=== PATIENT | male | born 1965 | race Caucasian/White ===

== ENCOUNTER → 2016-11-05 | Outpatient (CLI) | payer BC ==
--- NOTE | 2016-11-05 21:49 | CONS ---
DATE OF CONSULTATION: REASON FOR CONSULTATION: Sleep apnea. This is a 51-year-old male patient who is quite concerned about sleep apnea. Apparently he snores loudly and stops breathing at night and he is having some degree of excessive tiredness and sleepiness during the day. He does not have many medical problems or comorbidities other than hypertension. No grinding of the teeth. No restlessness in the lower extremities. No anxiety or depression. Duncan score is 19. No sleep paralysis. No hallucinations. No cataplexy. No falling asleep during day-to-day activities or driving a car. PAST MEDICAL HISTORY: Hypertension. Surgical history includes surgery for diverticular disease and orthopedic surgery on his right leg. DRUG ALLERGIES: NOT KNOWN. Outpatient medication includes Caduet. SOCIAL HISTORY: Nonsmoker. No history of alcohol. No history of IV drugs. FAMILY HISTORY: Negative for sleep apnea. REVIEW OF SYSTEMS: Twelve-point review of systems was done. The positive findings were all mentioned above in the history of present illness. BP is 120/81, pulse 84, respiration 16, temperature 97.1, saturation 96% on room air. Weight is 190. Height is 5 feet 8 inches. Neck size is 15-1/4. GENERAL APPEARANCE: Calm, comfortable. HEENT: Short neck. Crowding of posterior pharynx. There is no goiter or neck masses. Slight overbite. LUNGS: Clear to auscultation. HEART: Sounds are regular rate and rhythm. Normal S1, S2. ABDOMEN: Soft, nontender. No organomegaly. EXTREMITIES: No edema. No cyanosis or clubbing. IMPRESSION: 1. Snoring along with chronic hypersomnia; rule out obstructive sleep apnea. 2. Hypertension. PLAN: Proceed with a screening polysomnogram and treat accordingly.
== END | disposition home or self-care (01) ==
LOC: SLEEP 14:15
PROVIDERS: ATTEND Internal Medicine Critical Care Medicine
DX: G47.33 Obstructive sleep apnea (adult) (pediatric) (principal); G47.13 Recurrent hypersomnia; I10 Essential (primary) hypertension; Z79.899 Other long term (current) drug therapy
CPT/HCPCS: 99211

== ENCOUNTER → 2017-02-05 | Outpatient (CLI) | payer BC ==
--- NOTE | 2017-02-05 11:31 | XR ---
EXAM TYPE: LUMBAR SPINE X RAY SERIES COMPARISON: NONE HISTORY: Low back pain TECHNIQUE: 3 views are submitted. FINDINGS: Alignment is anatomic. The pedicles are intact. The transverse processes are intact. There is no s pondylolysis or spondylolisthesis. Hypertrophic changes at L2-3 and L3-L4 noted. There is a anterior superior endplate compression deformity of T12 of indeterminate age. Mild degenerative disc disease L2-3 L3-L4. IMPRESSION: 1. Anterior superior endplate fracture T12 of indeterminate age correlate with MRI. 2. Multilevel mild degenerative disc disease.
== END ==
LOC: RADXRMAIN 11:14
PROVIDERS: ATTEND Physician Assistant
DX: S22.089A Unspecified fracture of T11-T12 vertebra, initial encounter for closed fracture (principal); M51.36 Other intervertebral disc degeneration, lumbar region
CPT/HCPCS: 72100

== ENCOUNTER → 2017-03-19 | Outpatient (CLI) | payer BC ==
--- NOTE | 2017-03-19 09:22 | US ---
EXAMINATION TYPE: US abdomen complete DATE OF EXAM: 03/19/2017 COMPARISON: NONE CLINICAL HISTORY: R19.00 Abdominal Mass. Hx of diverticulitis and diverticulosis. Palpable on right anterior lateral abdomen. EXAM MEASUREMENTS: Liver Length: 14.2 cm Gallbladder Wall: 0.2 cm CHD: 0.3 cm Spleen: 11.9 cm Right Kidney: 10.1 x 5.6 x 5.1 cm Left Kidney: 10.4 x 5.6 x 5.1 cm At the palpable abnormality there is an isoechoic area with the adjacent subcutaneous fat. This is es timated to measure 4.0 x 1.1 cm and may be a lipoma. Pancreas: head and tail not well seen due to overlying bowel gas Liver: wnl Gallbladder: wnl Evidence for sonographic Andrew's sign: neg CHD: wnl Spleen: wnl Right Kidney: wnl Left Kidney: wnl Upper IVC: seen Abd Aorta: seen Area of visual palpable area scanned. Prominent superficial lesion seen, nonvascular = 4.0 x 2.6 x 1 .1 cm. Contralateral image taken. IMPRESSION: 1. Visualized abdomen ultrasound is unremarkable. 2. At the palpable area fat type echogenicity may be present. Consider lipoma. CT or MRI could be per formed over this region for confirmation.
== END | disposition home or self-care (01) ==
LOC: RADUSWWP 08:04
PROVIDERS: ATTEND Family Medicine
DX: R19.00 Intra-abdominal and pelvic swelling, mass and lump, unspecified site (principal)
CPT/HCPCS: 76700

== ENCOUNTER → 2017-06-24 | Outpatient (CLI) | payer BC ==
--- NOTE | 2017-06-24 16:22 | PN ---
PROGRESS NOTE 51-year-old male patient diagnosed having LEXIE with an AHI of 25, currently on CPAP and the patient is coming in for follow up and a compliancy check. Feeling better. His Rosendale score was 19 because of reflecting his excessive hypersomnia and is improving while on CPAP therapy. His sleep quality is improved. He is waking up much more energetic and refreshed and alert. He is benefitting from the treatment. His compliance data that shows that the patient has been having difficulty keeping the mask and he has a AirFit P10 nasal pillows. He has been using his CPAP almost every night 27 out of 30 days. His CPAP use for more than 4 hours is 50% of the time. His average CPAP is around 3.8 hours. Leak factor is at 30 L and his AHI while on treatment is down to 2.9. As such, the patient will need mask adjustment. He is benefitting from the treatment. PHYSICAL EXAMINATION: BP is 129/76, pulse 73, respirations 18, weight is 196, temperature 98.0. Saturation 98% on room air. GENERAL APPEARANCE: Calm, comfortable. HEENT: Negative for JVD. No goiter or neck mass. Mallampati class 4. Lungs clear to auscultation. Heart sounds regular rhythm. Normal S1, S2. Abdomen is soft, nontender. No organomegaly. EXTREMITIES: No edema. No cyanosis or clubbing. IMPRESSION: 1. Symptomatic obstructive sleep apnea moderate to severe with an AHI of 25, currently on CPAP pressure of 11 cm of water. Having difficulty in keeping a tight seal with AirFit nasal pillow. 2. Hypersomnia improving. 3. Sleep fragmentation improving. 4. Nocturnal oxygen desaturation. Improving. PLAN: 1. Trial this patient on a Jacobson FX nasal mask. Another option will be a Dreamware nasal pillow. 2. Keep same CPAP pressure. 3. See me back in 30 days for another compliancy check. MMODL / IJN: [id number] /
== END ==
LOC: SLEEP 15:05
PROVIDERS: ATTEND Internal Medicine Critical Care Medicine
DX: G47.33 Obstructive sleep apnea (adult) (pediatric) (principal); G47.10 Hypersomnia, unspecified

== ENCOUNTER → 2017-07-22 | Outpatient (CLI) | payer BC ==
--- NOTE | 2017-07-22 18:04 | PN ---
PROGRESS NOTE This 51-year-old male patient had obstructive sleep apnea with an AHI of 25 and currently he is on CPAP therapy. Unfortunately we are having issues with the patient's compliancy. During his last evaluation I noted the patient has been doing well. However I want to improve his compliance further by giving him a dream wear nose pillow and switched him from a Jacobson FX nose mask. On today's evaluation the treatment compliance has gotten worse as the patient has not been able to achieve more than 4 hours of CPAP use with dream wear mask. He puts the mask on every night however it seems that the mask itself is coming off and he is looking for an alternative mask that has a better grasp on his nose and a stronger head gear to the point where he cannot pull it out. He feels that he does better when he is on the CPAP and he was benefitting from the treatment. However now that his compliance has gotten worse his symptoms of sleep apnea are back and the patient is feeling somnolent and sleepy. PHYSICAL EXAMINATION: His current vital signs are as follows: Blood pressure is 119/76, pulse 88, respirations 16, height is 5 feet 8 inches, weight is 192, BMI 29. General appearance calm comfortable, not in acute distress. Head is atraumatic, normocephalic. Neck is supple. There is no JVD no goiter or neck masses. Mallampati class 4 lungs are clear to auscultation. No wheeze, rhonchi, or crackles. Heart sounds are regular. Positive S1, S2. No S3, S4. No murmurs. Abdomen is soft, nontender. No organomegaly. EXTREMITIES: No edema. No cyanosis or clubbing. NEUROLOGIC: Alert and oriented x3. No focal neurological deficits. Psychiatric negative for anxiety, depression. No claustrophobia. IMPRESSION: 1. Symptomatic obstructive sleep apnea with an AHI of 25 currently on CPAP pressure of 11 cm of water. 2. Hypersomnia. 3. Nocturnal oxygen desaturation secondary to obstructive sleep apnea. PLAN: 1. Continue CPAP at same level of pressure. 2. Provide the patient with nose mask which gives the patient a stronger head gear that should be able to fix the nose mask more effectively. 3. Encourage weight loss. 4. See me back in 4 weeks time to re-evaluate compliancy. MMODL / IJN: [id number] /
== END ==
LOC: SLEEP 15:17
PROVIDERS: ATTEND Internal Medicine Critical Care Medicine
DX: G47.33 Obstructive sleep apnea (adult) (pediatric) (principal)

== ENCOUNTER → 2017-09-23 | Outpatient (CLI) | payer BC ==
--- NOTE | 2017-09-23 17:17 | PN ---
PROGRESS NOTE A 52-year-old male patient with obstructive sleep apnea seeing me in followup. The patient is still having some difficulties in meeting compliancy with his CPAP machine. He has moderate obstructive sleep apnea with an AHI of 25 and is currently on a CPAP pressure of 11 cm of water. He is trying his best. He has been on Eson nose mask and I have reviewed his compliancy over the past 30 days and his average CPAP usage is improved and is up to 4.4 hours. He is using his CPAP 22 out of the past 30 days and his CPAP use for more than 4 hours has been 14/30, leak factor 70 L/minute. AHI while on treatment is down to 1.2. He definitely feels better while on CPAP; however, for reasons that are not clear to him, he pulls it out in the middle of the night. He does better when he was using the muscle relaxants for back pain, as he was able to keep it for a longer period of time. BP is 117/69, pulse 77, respirations 16, temperature 98, BMI 30.2, weight is 199, height is 5 feet 8 inches, saturation 96% on room air. GENERAL APPEARANCE: Calm, comfortable. Head is atraumatic, normocephalic. Neck is supple. There is no JVD. No goiter or neck mass. Mallampati class IV. LUNGS: Clear to auscultation. HEART: Sounds regular rhythm. Normal S1, S2. No S3. No murmurs. ABDOMEN: Soft, nontender. No organomegaly. EXTREMITIES: No edema. No cyanosis or clubbing. NEUROLOGIC: OA x3. There are no focal neurological deficits. PSYCHIATRIC: Negative for anxiety or depression. IMPRESSION: Obstructive sleep apnea, apnea-hypopnea index of 25, still struggling with the CPAP therapy and he is unable to reach full compliancy. PLAN: The patient is improving. His compliancy numbers have improved. His average CPAP is use up to 4.4 hours per night. He will try to make an effort to put it on every night. He uses am Eson nose mask. Change him to an automatic CPAP mode with a minimum pressure of 4, maximum pressure of 11, provide him Tylenol PM for nighttime sleep and pain. See me back in 2 months' time in follow up. I am hoping he will achieve full compliance by then. MMODL / IJN: [id number] /
== END | disposition home or self-care (01) ==
LOC: SLEEP 15:10
PROVIDERS: ATTEND Internal Medicine Critical Care Medicine
DX: G47.33 Obstructive sleep apnea (adult) (pediatric) (principal); Z99.89 Dependence on other enabling machines and devices

== ENCOUNTER → 2017-11-18 | Outpatient (CLI) | payer BC ==
--- NOTE | 2017-11-18 16:54 | PN ---
PROGRESS NOTE This is a 52-year-old male patient coming in for a compliancy check regarding obstructive sleep apnea. During his last visit, the patient's numbers were not the best; he was having some difficulties with his CPAP machine, and based on that I switched him to an auto CPAP with a minimum pressure of 4, maximum pressure of 11. I gave him an Eson nose mask. On today's evaluation, his numbers are looking much better. The patient has been averaging 5.6 hours of CPAP use per night. His leak factor is minimal at 8 L/minute. He is averaging around 6 hours of CPAP use per night. His CPAP use for more than 4 hours is 26 out of 30. He is waking up alert and refreshed and he has got too much energy in him. His sleep quality has improved considerably. His only complaint is that the insurance company is not paying for his CPAP machine, and he wants to investigate this further. Note that initially he was having some issues with his compliancy; however, numbers have improved significantly since then. His current Chardon score is 8. PHYSICAL EXAMINATION: BP is 153/99, pulse 78, respiration 16, temperature 98.1, saturation 98% on room air. GENERAL APPEARANCE: Calm, comfortable. Head is atraumatic, normocephalic. Neck is short, supple. Crowding of posterior pharynx. LUNGS: Clear to auscultation. Heart sounds are regular in rate and rhythm. Normal S1, S2. No S3, S4. No murmurs. Abdomen is soft, nontender. No organomegaly. EXTREMITIES: No edema. No cyanosis or clubbing. IMPRESSION: 1. Obstructive sleep apnea, moderate to severe. AHI of 25. 2. Hypersomnia, improved with CPAP therapy. PLAN: The patient has demonstrated benefit, and his overall compliance has been improving. He is doing well. He is sleeping much better. He is waking up much more refreshed. His treatment has become a success. Continue Eson nose mask and see me back in a year's time, earlier if needed. MMODL / IJN: [id number] /
== END | disposition home or self-care (01) ==
LOC: SLEEP 15:01
PROVIDERS: ATTEND Internal Medicine Critical Care Medicine
DX: G47.33 Obstructive sleep apnea (adult) (pediatric) (principal)

== ENCOUNTER → 2021-09-27 | Outpatient (CLI) | payer BC | END | disposition home or self-care (01) | LOC: LABWHC1 12:39 | PROVIDERS: ATTEND Family Medicine | DX: U07.1 COVID-19 (principal) | CPT/HCPCS: 87502; U0003; C9803; U0005 ==